=== PATIENT | female | born 1965 | race Caucasian/White ===

== ENCOUNTER → 2018-09-24 07:03 | Outpatient (CLI) | payer OTHER, SELFPAY ==
--- NOTE | 2018-09-24 07:11 | CT_ITS ---
CT angio neck CTA processing with 3-D volume rendering images with shading performed on radiologist workstation Ordering Physician: Gregorio Merlos MD Patient Age: 52 years: Female HISTORY: ITS.REASON: CTA of the carotids TECHNIQUE: Bolus administration of 100 cc of Optiray 350 followed x 40 mL normal saline. Thin section helical scanning performed beginning at the aortic arch continuing through the neck & head. From these CTA processing performed by the radiologist on the radiologist workstation CTA processing with 3-D volume rendering images with shading performed on independent radiologist workstation following the routine. Axial sagittal and coronal reconstructions at CT workstation. All CT scans at this facility used one or more dose reduction techniques , viz: automatic exposure control, ma/Kv adjustment per patient's size, (including targeted exam where dose matched to the indication; i.e. head); or iterative reconstruction technique COMPARISON :None] available FINDINGS the aneurysm of Right ICA stenosis: Smooth stenosis at the proximal right internal carotid artery, just distal to its origin. Lumen measures 2.6 mm at this stenosis. ICA Lumen just distal to the stenosis measuring 4.7 mm. Thus this reflects a 45% diameter stenosis (and 50-60% cross section stenosis on the workstation processing/review.). Right carotid bifurcation appears satisfactory no calcified plaque in either bifurcation. Left ICA and left carotid bifurcation satisfactory.. No stenosis. No remarkable plaque Both common carotid arteries appear satisfactory and can be followed to the arch although there is some streak artifact due to the dense contrast at the left subclavian. Overall Satisfactory and widely patent appearance at the origin of great vessels from the arch. Both vertebral arteries appear patent WNL. 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 It measures up to 4.7 mm AP versus the more proximal basilar artery 2.5 mm diameter. I would consider this ectasia with a modest size but will benefit from follow-up. Suggest CTA in 9 months to again evaluate.. This is a particular concern if patient develops headaches.- Consider neurosurgical consult. . middle cerebral arteries images appear satisfactory. ... Very small right A1 segment with larger dominant Left A1 segment ... Small Patent posterior communicating arteries bilaterally which leads to the posterior cerebral arteries. The visualized paranasal sinuses clear Mastoid air cells unremarkable. ------IMPRESSION 1. Right ICA stenosis. 45% diameter stenosis proximal right ICA . Right ICA lumen lumen measures 2.6 mm diameter at its most narrow point 2. Left ICA unremarkable. Both common carotids unremarkable. Both carotid bifurcations unremarkable. 3. 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 Suggest follow-up follow-up CTA 6-9 months. Possibly consultation particularly significant headache. ..... Enlarged Right Lobe Thyroid with. Prominent nodule right lobe2.2 cm . Requires ultrasound follow-up
--- NOTE | 2018-09-24 07:11 | NM_ITS ---
CARDIOLITE SPECT MYOCARDIAL PERFUSION LEXISCAN, REST AND STRESS: [facility] REVIEW QGS EF AND WALL MOTION EVALUATION: QPS - PERFUSION EVALUATION HISTORY: C.P., SOB DOSE: 10.47 mCi technetium 99m mibi intravenously at rest followed by 31.6 mCi technetium 99m mibi following the intravenous ministration of 0.4 mg of Lexiscan. Resting blood pressure is 151/74. Stress blood pressure 133/61. FINDINGS: Ejection fraction is calculated to be 54. Stress images reveal decreased activity in the anterior wall while rest images reveal no significant change. Gated images ejection fraction 54% with normal wall motion IMPRESSION: Clinical correlation is advised. There is a large anterior defect with rest and stress accompanied by normal ejection fraction. This test suggests breast attenuation however clinical correlation is necessary
== END ==
PROVIDERS: PCP Family Medicine; Visit Provider Internal Medicine
DX: R07.89 Other chest pain (principal); R06.09 Other forms of dyspnea; I65.23 Occlusion and stenosis of bilateral carotid arteries; I10 Essential (primary) hypertension; F17.200 Nicotine dependence, unspecified, uncomplicated
CPT/HCPCS: 70498; 78452; 93017; A9502; J2785; Q9967

== ENCOUNTER → 2018-10-10 09:46 | Outpatient (CLI) | payer OTHER, SELFPAY ==
--- NOTE | 2018-10-10 09:49 | US_ITS ---
US thyroid HISTORY: Follow-up thyroid nodule ITS.REASON: THYROID NODULE ORDERING PHYSICIAN: Carlos Enrique Stewart PATIENT AGE: 52 years Comparison: 09/24/2018 FINDINGS: The right lobe is 4.4 x 1.9 x 2.3 cm. There is a 2.2 x 1.4 cm spongiform-appearing Nodule within the mid polar region of the right lobe of the thyroid gland corresponding to the CT abnormality. This is well-circumscribed. In addition, there is a 10 x 6 mm isoechoic nodule with central cystic area in the lower pole. The left lobe is 4.5 x 1.4 x 1.6 cm and contains at least 3 small cysts. IMPRESSION: 1. Dominant mixed echogenic nodule of the mid polar region of the right lobe of the thyroid gland 2.2 x 1.4 cm. Fine-needle aspiration could be performed with sonographic guidance of clinically desired 2. Mildly enlarged thyroid gland bilaterally
== END ==
PROVIDERS: PCP Family Medicine; Visit Provider Family Medicine
DX: E04.1 Nontoxic single thyroid nodule (principal)
CPT/HCPCS: 76536

== ENCOUNTER → 2018-11-05 12:23 | Outpatient (CLI) | payer OTHER, SELFPAY ==
[2018-11-05 13:26] LABS: Calcium 8.3 mg/dL (8.5-10.1); Free T4 (Free Thyroxine) 0.84 ng/dl (0.76-1.46); Thyroid Stimulating Hormone 1.44 uIU/ml (0.358-3.740)
[2018-11-06 08:18] LABS: Thyroid Peroxidase Antibodies 10 IU/mL (0-34)
[2018-11-07 07:01] LABS: Thyroglobulin Level <1.0 IU/mL (0.0-0.9)
== END ==
PROVIDERS: Visit Provider Otolaryngology
DX: E04.1 Nontoxic single thyroid nodule (principal)
CPT/HCPCS: 36415; 82308; 82310; 84439; 84443; 86376; 86800

== ENCOUNTER → 2018-11-07 08:42 | Outpatient (CLI) | payer OTHER, SELFPAY ==
--- NOTE | 2018-11-07 08:51 | FL_ITS ---
EXAM: Barium swallow/esophagram. INDICATION: ITS.REASON: DIFFICULTY SWALLOWING,INVOLUNTARY GASP FOR AIR ORDERING PHYSICIAN: Delvis Rollins MD PATIENT AGE: 52 years COMPARISON: None TECHNIQUE: In the upright position the patient was observed to swallow barium in both the AP and lateral view. The cervical esophagus was examined under fluoroscopy with images obtained. The patient was then placed prone in the right anterior oblique position and was observed to swallow barium with Valsalva technique . FLUOROSCOPY TIME: 54 seconds FINDINGS: There was no evidence of aspiration. There was normal peristalsis. No filling defects or mucosal abnormalities. No masses or strictures. The esophagus is midline without evidence of deviation. No external compression apparent. No hiatal hernia or reflux IMPRESSION: Negative barium swallow.
--- NOTE | 2018-11-07 08:53 | US_ITS ---
US FNA Thyroid HISTORY: ITS.REASON: RT THYROID NODULE ORDERING PHYSICIAN: Delvis Rollins MD PATIENT AGE: 52 years COMPARISON: None TECHNIQUE: Following obtaining informed consent, and the appropriate timeout procedure, using aseptic technique and local anesthesia with buffered lidocaine, fine-needle aspiration was performed of the nodule of interest in the mid polar region on the right. Using sonographic guidance. 3 passes were made into the nodule with a 25-gauge needle. Specimen was given to cytology. The patient tolerated the procedure well without evidence of immediate complications and left the ultrasound suite in stable condition. CYTOLOGY:Negative for malignant cells IMPRESSION: Uneventful ultrasound-guided fine-needle aspiration of the right lobe of the thyroid gland showing benign findings.
== END ==
PROVIDERS: PCP Family Medicine; Visit Provider Otolaryngology
DX: E04.1 Nontoxic single thyroid nodule (principal)
CPT/HCPCS: 10005; 74220; 76942

== ENCOUNTER → 2019-04-24 15:26 | Outpatient (CLI) | payer OTHER, SELFPAY ==
[2019-04-24 16:38] LABS: Blood Urea Nitrogen 13 mg/dL (7-18); Creatinine,Serum 0.87 mg/dL (0.55-1.02); Estimated Glomerular Filt Rate 68 ml/min (>60); GFR (African American) 82 ML/MIN (>60)
== END ==
PROVIDERS: Visit Provider Internal Medicine
DX: I10 Essential (primary) hypertension (principal); I65.29 Occlusion and stenosis of unspecified carotid artery; R07.9 Chest pain, unspecified
CPT/HCPCS: 36415; 82565; 84520

== ENCOUNTER → 2019-05-09 09:27 | Outpatient (CLI) | payer OTHER, SELFPAY ==
--- NOTE | 2019-05-09 09:28 | CT_ITS ---
Procedure: CT ANGIO NECK CLINICAL HISTORY: 6 month follow up ,ectasia Carotid stenosis, ectasia of the basilar artery COMPARISON: [facility] CT angio neck from 09/24/2018 TECHNIQUE: IV Contrast: 100ml Optiray 350 Axial images obtained with sagittal and coronal reformats. All CT scans at the facility use one or more dose reduction, viz: automated exposure control, ma/kV adjustment per patient size (including targeted exams where dose is matched to indication, i.e. head), or iterative reconstruction technique. FINDINGS: Unremarkable aortic arch and great vessels. No change in the 45 percent stenosis the ostium of the right ICA The mid distal aspect of the right ICA has an unremarkable appearance. No significant stenosis left ICA. Unremarkable vertebral arteries. CT angiography also performed the head. There remains ectasia the basilar tip which is not significantly changed. No other intracranial vascular abnormalities apparent. 33 Nonvascular findings: Prominent interstitium in the lung apices. Small a right paratracheal lymph node is present at 1.6 x 0.8 cm and appears stable. There has been an interval right thyroidectomy. 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
[2019-05-09 10:09] LABS: Blood Urea Nitrogen 14 mg/dL (7-18); Creatinine,Serum 0.86 mg/dL (0.55-1.02); Estimated Glomerular Filt Rate 69 ml/min (>60); GFR (African American) 83 ML/MIN (>60)
--- NOTE | 2019-05-09 11:03 | HMH.ITSHM ---
Current Home Medications as stated by this patient Adrienne Khanna or branch service representative. []ALBUTEROL ASA ATORVASTATIN FLUOXETINE ISOSORBIDE LEVOTHYROXINE LISINOPRIL METOPROLOL NITRO OMEPRAZOLE
== END ==
PROVIDERS: PCP Family Medicine; Visit Provider Physician Assistant
DX: I65.21 Occlusion and stenosis of right carotid artery (principal)
CPT/HCPCS: 36415; 70498; 82565; 84520; Q9967

== ENCOUNTER → 2019-10-13 12:55 | Outpatient (CLI) | payer OTHER, SELFPAY ==
--- NOTE | 2019-10-13 13:10 | US_ITS ---
PROCEDURE: US KIDNEY CLINICAL INDICATION: I10 Essential (primary) hypertension COMPARISON: No exams were available for comparison FINDINGS: The right kidney is [id number]. No hydronephrosis, cortical thinning, or renal mass or perinephric fluid collection is evident. The left kidney is [id number]. No hydronephrosis, cortical thinning, or renal mass or perinephric fluid collection is evident. IMPRESSION: Unremarkable bilateral renal ultrasound Dictated by: John Encarnacion MD 10/13/2019 15:38 Electronically signed by John Encarnacion MD in [place] 10/13/2019 15:38
[2019-10-13 13:14] LABS: Basophils # 0.3 K/mm3 (0-0.2); Eosinophils # 0.7 K/mm3 (0.0-0.4); Eosinophils % 5.1 % (0.1-12.0); Hematocrit 44.6 % (37.0-47.0); Hemoglobin 14.9 g/dL (12.2-16.2); Lymphocytes # 3.4 K/mm3 (0.7-4.5); Lymphocytes % 25.5 % (10-50); Mean Corpuscular HGB Conc 33.4 g/dL (31.8-35.4); Mean Corpuscular Hemoglobin 30.9 pg (27.0-31.2); Mean Corpuscular Volume 92.5 fl (81-99); Mean Platelet Volume 8.4 fl (7.4-10.4); Monocytes # 0.5 K/mm3 (0.1-1.0); Monocytes % 4.1 % (1.7-9.3); Neutrophils # 8.4 K/mm3 (1.8-7.8); Neutrophils % 63.4 % (37.0-80.0); Platelet Count 338 K/mm3 (142-424); Red Blood Count 4.82 M/mm3 (4.20-5.40); Red Cell Distribution Width 14.3 % (11.5-17.5); White Blood Count 13.3 K/mm3 (4.8-10.8)
[2019-10-13 13:38] LABS: Troponin I < 0.01 ng/ml (0.00-0.034)
[2019-10-13 14:30] LABS: Alanine Aminotransferase 22 U/L (12-78); Albumin Level 4.3 g/dl (3.5-5.0); Alkaline Phosphatase 90 U/L (38-126); Anion Gap 8.4 mEq/L (5-15); Aspartate Amino Transferase 29 U/L (14-36); Bilirubin,Indirect 0.4 mg/dL (0.0-0.9); Bilirubin,Total 0.4 mg/dl (0.2-1.3); Bilirubin,Unconjugated 0.4 mg/dL (0.0-1.1); Blood Urea Nitrogen 13 mg/dl (7-17); Calcium 9.4 mg/dl (8.4-10.2); Carbon Dioxide 29 mmol/L (22.0-30.0); Chloride 108 mmol/L (98-107); Chol/HDL Ratio 4.7 (1-3.5); Cholesterol 160 mg/dl (140-200); Estimated Glomerular Filt Rate 65 ml/min (>60); GFR (African American) 79 ML/MIN (>60); Glucose 92 mg/dl (74-100); HDL Cholesterol 34 mg/dl (40-60); Potassium 4.4 mmoL/L (3.5-5.1); Sodium 141 mmol/L (136-145); Total Protein,Serum 6.6 g/dl (6.3-8.2); Triglycerides 387 mg/dl (30-150); VLDL Cholesterol 77 mg/dL (0-40)
[2019-10-13 14:41] LABS: Direct LDL Cholesterol 88.79 mg/dL (100-129)
[2019-10-13 15:03] LABS: Thyroid Stimulating Hormone 1.73 uIU/mL (0.465-4.68)
== END ==
PROVIDERS: Visit Provider Nurse Practitioner Family
DX: E78.2 Mixed hyperlipidemia (principal); I10 Essential (primary) hypertension; I20.9 Angina pectoris, unspecified
CPT/HCPCS: 36415; 76770; 80048; 80061; 80076; 84443; 84484; 85025

== ENCOUNTER → 2019-10-15 07:17 | Outpatient (CLI) | payer OTHER, SELFPAY ==
--- NOTE | 2019-10-15 07:18 | CA_ITS ---
APPROVED REPORT Sewing Pattern Layout Technician: Mandi Broussard RVT Study Quality: Good Indications: high blood pressure Risk Factors Hypertension Smoking Renal Artery Doppler Origin (R) 178.6/ cm/sec Proximal (R) 190.3/ cm/sec Mid (R) 250.5/ cm/sec Distal (R) 183.7/ cm/sec Renal Aorta Ratio (R) 2.42 Segmental A. (R) 34.7/14.2 cm/sec RI: 0.59 Segmental A. Sup (R) 26.2/7.1 cm/sec Segmental A. Mid (R) 22.0/11.3 cm/sec Segmental A. Inf (R) 34.7/14.2 cm/sec Origin (L) 191.0/ cm/sec Proximal (L) 201.2/ cm/sec Mid (L) 128.9/ cm/sec Distal (L) 85.8/ cm/sec Renal Aorta Ratio (L) 1.94 Segmental A. (L) 72.6/14.1 cm/sec RI: 0.80 Segmental A. Sup (L) 60.7/19.8 cm/sec Segmental A. Mid (L) 72.6/14.1 cm/sec Segmental A. Inf (L) 36.3/13.1 cm/sec Conclusion Study suggests less than 60% stenosis of the right renal artery. Study suggests less than 60% stenosis of the left renal artery. Electronically signed by : John Encarnacion MD 10/15/2019 16:38:52
== END ==
PROVIDERS: PCP Family Medicine; Visit Provider Nurse Practitioner Family
DX: I10 Essential (primary) hypertension (principal)
CPT/HCPCS: 93976

== ENCOUNTER 2019-10-26 22:56 | Observation (INO) | payer OTHER, SELFPAY ==
[2019-10-26 23:15] VITALS: BP 156/94; PULSE 63; RESP 17; TEMP 36.7; O2SAT 93
--- NOTE | 2019-10-26 23:19 | PC.NURSE ---
pt arrived to the floor at 2300 via stretcher, with Panda from ED and [facility] ambulance
[2019-10-26 23:29] VITALS: PULSE 60
--- NOTE | 2019-10-26 23:33 | ECG_ITS ---
APPROVED REPORT Exam: Resting ECG HR:63 bpm ECG Measurements Heart Rate 63 AXES DC 144 P 46 QRSd 84 QRS 46 QT 436 T 55 QTc 446 <Conclusion> Normal sinus rhythm with sinus arrhythmia Possible Left atrial enlargement Borderline ECG Electronically signed by : Ghulam Cummings, 10/27/2019 20:57:21
--- NOTE | 2019-10-26 23:37 | HMH.HP ---
*Admission Date: 10/26/19 *Chief complaint: chest pain *History of present illness: this pt presented to [facility] ed with chest pain - pt with hx of htn, cad-pt with recent abn renal duplex - pt was seen at another ed and has ongoing angina and was discussed with card and admitted for unstable angina [facility] History I have reviewed the patient's past medical history: Yes Medical History: Reports:: Aneurysm, Anxiety, Carotid Stenosis, Coronary Artery Disease, Depression, Gastroesophageal Reflux Disease(GERD), Hiatal Hernia, Hyperlipidemia, Hypertension *Have you ever received a pneumonia vaccine?: No *Have you received a flu vaccine this season?: No Other Surgeries: Yes: Cardiac Catheterization, Cholecystectomy, Hysterectomy-Total - *Social History Smoking Status: Current every day smoker #Yrs smoked (if former smoker): 42 Alcohol Intake: current Alcohol Intake Frequency:: holidays/special occasions only Substance Use Type: denies use *Occupational Status:: employed *Travel in the last 8 weeks: None - Psychiatric History Pschychiatric History:: Reports:: Anxiety, Depression Family Hx:: Coronary Artery Disease, Heart Attack Review of Systems - Review of Systems Review of systems:: pertinent systems reviewed and negative unless documented below - Constitutional Denies fever(s) - Eyes Denies change in vision - ENT Denies sore throat - *Cardiovascular Reports chest pain at rest, Reports radiating jaw, neck or arm pain - *Respiratory Denies cough - *Gastrointestinal Denies abdominal pain - *Genitourinary Denies blood in urine - *Musculoskeletal Denies joint pain - Integumentary/Breasts Denies rash - *Neurologic Denies headache(s), Denies seizure-like activity - Psychiatric Denies anxiety Meds Home Medications Medication Instructions Recorded Confirmed Type albuterol sulfate 90 mcg/actuation 1 inh INHALATION Q4-6H PRN 09/10/18 10/26/19 History breath activated powder inhaler atorvastatin 80 mg tablet 80 mg PO QHS 09/10/18 10/26/19 History fluoxetine 20 mg capsule 20 mg PO DAILY 09/10/18 10/26/19 History nitroglycerin 0.4 mg sublingual 0.4 mg SUBLINGUAL Q5-15M PRN 09/10/18 10/26/19 History tablet omeprazole 40 mg capsule,delayed 40 mg PO DAILY 09/10/18 10/26/19 History release levothyroxine 100 mcg capsule 100 mcg PO DAILY 04/21/19 10/26/19 History aspirin 81 mg tablet,delayed 81 mg PO DAILY 10/13/19 10/26/19 History release losartan 100 mg tablet 50 mg PO BID 10/13/19 10/26/19 History metoprolol tartrate 100 mg tablet 100 mg PO BID tab 10/13/19 10/26/19 History Isosorbide Mononitrate [Imdur 30mg 30 mg PO DAILY 10/26/19 10/26/19 History ER tablet] hydroCHLOROthiazide 12.5 mg PO DAILY 10/26/19 10/26/19 History [Hydrochlorothiazide 12.5mg Tab] Allergies Allergy/AdvReac Type Severity Reaction Status Date / Time niacin Allergy Mild Verified 10/20/19 09:51 Exam - Constitutional no acute distress, obese - *Routine HEENT Exam Head: Present: normocephalic Eye: Present: EOMI, PERRL ENT: Present: mucous membranes dry - *Routine Neck Exam Present: supple. Absent: JVD - *Routine Respiratory Exam Present: CTA bilaterally - *Routine Cardiovascular Exam Present: RRR, murmur - *Routine Abdominal Exam Present: soft - *Routine Extremities Exam Absent: calf tenderness - *Routine Skin Exam Present: intact - *Routine Neurological Exam Present: alert, oriented X3, CN II-XII intact - Routine Psychiatric Exam Present: normal affect Assessment and Plan (1) Unstable angina Current visit: Yes Status: Acute Category: Medical Code(s): I20.0 - Unstable angina (2) HTN (hypertension) Current visit: No Status: Chronic Qualifiers: Hypertension type: essential hypertension Qualified Code(s): I10 - Essential (primary) hypertension Category: Medical Code(s): I10 - Essential (primary) hypertension (3) Obesity (BMI 30.0-34.9) Current visit: Moy
[2019-10-26 23:42] VITALS: BMI 31.5
[2019-10-27] VITALS (11 sets, daily range): BP systolic 136–172; BP diastolic 68–82; PULSE 56–80; RESP 18–22; TEMP 36.8; O2SAT 94–99; BMI 31.6
--- NOTE | 2019-10-27 | IR_ITS ---
APPROVED REPORT Patient Location: Inpatient Well Head Pumper: MIKE Morris RT (R) PROCEDURES Left heart catheterization Left ventriculogram Selective coronary angiogram Bilateral selective renal angiogram INDICATION Acute coronary syndrome/unstable angina, Malignant hypertension, Renovascular hypertension, Suspect renal artery stenosis Informed consent was obtained prior to the procedure. COMPLICATIONS NONE Estimated Blood Loss: LESS THAN 10 MLS TECHNIQUE One percent lidocaine was used to anesthetize the right groin. The right femoral artery was accessed via the Seldinger technique. A 4-Kazakh sheath was placed in the right femoral artery. The JL-4 and JR-4 catheter was also used to perform left heart catheterization left ventriculogram and selective coronary angiogram. At the end of the procedure the patient was transferred to the post-op holding area in stable condition for arterial sheath removal. The JR4 catheter was used to selectively intubate each renal artery and perform selective angiography ANGIOGRAPHIC RESULTS The left main artery Normal The left anterior descending artery Has proximal concentric 20 to 30% stenosis. The remaining vessel has mild 10% luminal irregularities. The caliber of the vessel was small but widely patent The circumflex artery Nondominant with mild 10% luminal irregularities The right coronary artery Is a dominant vessel small in caliber and has proximal and mid vessel 20% concentric stenosis The GALVEZ ventriculogram reveals Hyperdynamic at 75% The left ventricular end-diastolic pressure Severely elevated at 30 mmHg The left renal artery singular and is normal The right renal artery is singular and has an ostial proximal eccentric 20% [id number] stenosis IMPRESSION Mild upk-[id number]-twngydvt coronary artery disease Small caliber vessels consistent with hypertensive vasculopathy Hyperdynamic ventricle consistent with hypertensive heart disease Elevated LVEDP consistent with hypertensive heart disease/diastolic dysfunction PLAN 1. Continue aggressive therapy for CAD prevention including an LDL less than 55 2. Patient would benefit from beta-blockers combined with diltiazem or verapamil 3. Treat diastolic dysfunction with loop diuretics 4. Avoidance of tobacco products Electronically signed by : Gregorio Merlos, 10/27/2019 12:13:12
[2019-10-27 04:06] LABS: Troponin I < 0.01 ng/ml (0.00-0.034)
--- NOTE | 2019-10-27 05:59 | PC.NURSE ---
Pt states that chest pain has improved. She rates it between a 2 and 3 now on [employer]CR[employer]ER scale. Pt is currently NPO for AM consult. SHe is currently in shower. VSS. No other concerns at this time. Will continue to monitor.
[2019-10-27 06:35] LABS: Basophils # 0.2 K/mm3 (0-0.2); Eosinophils # 0.7 K/mm3 (0.0-0.4); Hematocrit 40.9 % (37.0-47.0); Hemoglobin 14.2 g/dL (12.2-16.2); Lymphocytes # 3.4 K/mm3 (0.7-4.5); Lymphocytes % 24.4 % (10-50); Mean Corpuscular HGB Conc 34.7 g/dL (31.8-35.4); Mean Corpuscular Hemoglobin 31.4 pg (27.0-31.2); Mean Corpuscular Volume 90.5 fl (81-99); Mean Platelet Volume 7.8 fl (7.4-10.4); Monocytes # 0.6 K/mm3 (0.1-1.0); Monocytes % 4.5 % (1.7-9.3); Neutrophils # 9.2 K/mm3 (1.8-7.8); Platelet Count 261 K/mm3 (142-424); Red Blood Count 4.52 M/mm3 (4.20-5.40); Red Cell Distribution Width 14.2 % (11.5-17.5); White Blood Count 14.1 K/mm3 (4.8-10.8)
[2019-10-27 06:37] LABS: Chloride 108 mmol/L (98-107)
[2019-10-27 06:38] LABS: Potassium 3.6 mmoL/L (3.5-5.1); Sodium 142 mmol/L (136-145)
[2019-10-27 06:40] LABS: Blood Urea Nitrogen 18 mg/dl (7-17); Creatinine Clearance Estimated 96 mL/min (50-200); Estimated Glomerular Filt Rate 65 ml/min (>60); GFR (African American) 79 ML/MIN (>60)
[2019-10-27 06:41] LABS: Anion Gap 10.6 mEq/L (5-15); Calcium 8.9 mg/dl (8.4-10.2); Carbon Dioxide 27 mmol/L (22.0-30.0); Glucose 99 mg/dl (74-100)
[2019-10-27 06:42] LABS: INR 0.97 (0.9-1.1); Prothrombin Time 10.1 seconds (9.4-11.8)
--- NOTE | 2019-10-27 06:46 | PC.NURSE ---
New IV placed. #20 RFA.
[2019-10-27 06:59] LABS: Troponin I < 0.01 ng/ml (0.00-0.034)
--- NOTE | 2019-10-27 07:41 | P.CONPHA_ITS ---
[facility] Pharmacy VTE Monitoring - Patient Demographics Admission date: 10/27/19 Report Date: 10/27/19 Time: 07:41 Allergies/Adverse Reactions: Patient Allergies niacin Allergy (Mild, Verified 10/20/19 09:51) Height: 1.65 m Weight: 85.95 kg Patient Problems: Current Active Problems Unstable angina (Acute) Obesity (BMI 30.0-34.9) (Acute) Hypothyroidism (acquired) (Acute) - VTE Risk Labs: VTE Related Lab Results Hgb 14.2 g/dL (12.2-16.2) 10/27/19 06:25 Hct 40.9 % (37.0-47.0) 10/27/19 06:25 Plt Count 261 K/mm3 (142-424) 10/27/19 06:25 PT 10.1 seconds (9.4-11.8) 10/27/19 06:25 INR 0.97 (0.9-1.1) 10/27/19 06:25 BUN 18 mg/dl (7-17) H 10/27/19 06:25 Creatinine 0.90 mg/dl (0.52-1.04) 10/27/19 06:25 Estimated Creat Clear 96 mL/min (50-200) 10/27/19 06:25 Was VTE Risk Assessment Performed: Yes VTE Score: 5 VTE Risk Level: Low Risk Clinical Trial Participant: No - Prophylaxis VTE Prophylaxis Ordered?: Yes Types of VTE Prophylaxis: TEDS Knee High
--- NOTE | 2019-10-27 08:00 | CA_ITS ---
APPROVED REPORT EXAM: Comprehensive 2D, Doppler, and color-flow Echocardiogram Satellite Tv Installer: Iesha Pacheco RT(R) Ht: 5 ft 5 in Wt: 189lbs BSA: 1.93 BP: 161/70 mmHg Indications: Smoking, HTN, Hyperlipidemia, Aneurysm, ALONDRA, CAD, Gerd 2D Dimensions LVOT 1.86 cm (M/F) 1.5-2.5 M-Mode Dimensions RVDd 1.68 cm (0.9-2.6) LVDd 5.04 cm (3.5-5.7) LVDs 3.94 cm (3.5-5.7) IVSd 0.93 cm (0.6-1.1) PWd 0.89 cm (0.6-1.1) EF (Teich) 44.00% FS 21.80% EDV (Teich) 120.50 mL ESV (Teich) 67.50 mL LV Diastology E/A Ratio 0.74 Mitral Valve MV A Velocity 126.00 (40-130 cm/s) Left Ventricle Left atrium is mildly enlarged, left ventricle is normal size, mild concentric left ventricular hypertrophy, visually estimated ejection fraction 50%, there appears to be mild hypokinesis involving the inferior basal wall, Definity contrast was utilized to delineate the endocardial surfaces, there is no left ventricular thrombus seen. Grade 1 diastolic dysfunction seen without tissue Doppler evidence of raise left atrial pressure. Right Ventricle Right atrium and right ventricle are normal size and contractility. Aortic Valve Aortic valve is minimally thickened and fibrosed, there is no aortic stenosis or aortic insufficiency. Mitral Valve Mitral valve leaflets are minimally thickened, there is mild mitral regurgitation. Tricuspid Valve Tricuspid valve is grossly normal, there is mild tricuspid regurgitation, tricuspid regurgitation jet velocity is inadequate for calculation of the right ventricular systolic pressure. Pulmonic Valve Pulmonic valve is poorly visualized. Great Vessels Aortic root is normal size. Pericardium No significant pericardial effusion noted. Conclusion 1. Mildly enlarged left atrium, normal left ventricular size, mild concentric left ventricular hypertrophy, visually estimated ejection fraction 50% with segmental wall motion abnormality described above, grade 1 diastolic dysfunction seen without tissue Doppler evidence of raise left atrial pressure, Definity contrast visualized to delineate the endocardial surfaces. 2. Mild mitral and tricuspid regurgitation. 3. No significant pericardial effusion noted. Electronically signed by : Leonel Sorenson, 10/27/2019 20:02:18
--- NOTE | 2019-10-27 08:19 | HMH.ACPN2 ---
Internal Medicine - PN: Subj *Date: 10/27/19 *Time: 08:19 Interval history: pt states still having chest pain, pt states smokes 1 1/2 pack per day. Exam Vital signs and Labs for Last 24 Hours: Temp Pulse Resp BP Pulse Ox 98.2 F 56 L 18 141/78 H 99 10/27/19 08:00 10/27/19 08:00 10/27/19 08:00 10/27/19 08:00 10/27/19 08:00 Laboratory Results - last 24 hr 10/27/19 03:30: Troponin I < 0.01 10/27/19 06:25: WBC 14.1 H, RBC 4.52, Hgb 14.2, Hct 40.9, MCV 90.5, MCH 31.4 H, MCHC 34.7, RDW 14.2, Plt Count 261, MPV 7.8, Neut % (Auto) 65.0, Lymph % (Auto) 24.4, [place] % (Auto) 4.5, Eos % (Auto) 5.0, Baso % (Auto) 1.0, Neut # (Auto) 9.2 H, Lymph # (Auto) 3.4, [place] # (Auto) 0.6, Eos # (Auto) 0.7 H, Baso # (Auto) 0.2 10/27/19 06:25: PT 10.1, INR 0.97 10/27/19 06:25: Sodium 142, Potassium 3.6, Chloride 108 H, Carbon Dioxide 27, Anion Gap 10.6, BUN 18 H, Creatinine 0.90, Estimated Creat Clear 96, Estimated GFR 65, Est GFR ( Amer) 79, Glucose 99, Calcium 8.9, Magnesium 2.0, Troponin I < 0.01 I & O for Last 24 hours: Intake & Output 10/24/19 10/25/19 10/26/19 10/27/19 11:59 11:59 11:59 11:59 Intake Total 0 / 0 Balance 0 / 0 Weight 189 lb 7.797 oz - Constitutional no acute distress, obese - *Routine HEENT Exam Head: Present: normocephalic Eye: Present: PERRL ENT: Present: mucous membranes moist - *Routine Neck Exam Present: supple. Absent: lymphadenopathy - *Routine Respiratory Exam Present: CTA bilaterally - *Routine Cardiovascular Exam Present: RRR, murmur - *Routine Abdominal Exam Present: soft, normoactive bowel sounds. Absent: tenderness - *Routine Extremities Exam Present: normal capillary refill. Absent: cyanosis, clubbing, edema - *Routine Skin Exam Present: warm. Absent: rash - *Routine Neurological Exam Present: alert, oriented X3 - Routine Psychiatric Exam Present: normal affect Assessment and Plan (1) Unstable angina Current visit: Yes Status: Acute Category: Medical Code(s): I20.0 - Unstable angina (2) HTN (hypertension) Current visit: No Status: Chronic Qualifiers: Hypertension type: essential hypertension Qualified Code(s): I10 - Essential (primary) hypertension Category: Medical Code(s): I10 - Essential (primary) hypertension (3) Obesity (BMI 30.0-34.9) Current visit: Yes Status: Acute Category: Medical Code(s): E66.9 - Obesity, unspecified (4) Hypothyroidism (acquired) Current visit: Yes Status: Acute Category: Medical Code(s): E03.9 - Hypothyroidism, unspecified (5) Tobacco dependence Current visit: Yes Status: Acute Category: Medical Code(s): F17.200 - Nicotine dependence, unspecified, uncomplicated - Assessment and plan all Dx Assessment and Plan for all problems:: rounded with dr anglin all orders per dr linnette salcido dc later today heart cath today
--- NOTE | 2019-10-27 08:39 | HMH.CNCARD ---
History of Present Illness Consult date: 10/27/19 Requesting physician: Carlos Enrique Barakat Consult reason: chest pain Chief complaint: Chest pain Additional Medical History:: 1. History of hypertension A. Renal duplex, 09/2019, unremarkable 2. History of chest pain A. Lexiscan Myoview, 09/2018, EF 54% with anterior ischemia and normal wall motion. Suggesting breast attenuation. B. Medical therapy recommended due to patient remaining asymptomatic 3. Tobacco use of 1 to 1.5 packs/day for 40+ years 4. Family history of heart disease in both parents in their mid to late 60s 5. Hypothyroidism, on replacement therapy 6. GERD with history of hiatal hernia 7. Hyperlipidemia 8. Anxiety 9. History of aneurysm per chart History of present illness: 53-year-old white female transferred from [facility] for evaluation of chest pain. Patient relates being at home resting when she developed sudden onset of viselike chest discomfort. Symptoms did radiate into the left shoulder and left upper arm. She did take 3 nitroglycerin at home without significant relief. Evaluation in [facility] ER initially but then patient was transferred to [facility] ER for evaluation due to sap director (Dr. Merlos) being here. Patient's troponins have returned normal overnight. EKG is sinus rhythm with no acute ST segment changes. Recent evaluation for malignant hypertension has included renal ultrasound and renal duplex both of which were unremarkable. Patient did check her blood pressure at home yesterday during the episode of chest pain and relates that it was not significantly elevated. [facility] History Medical History: Reports:: Aneurysm, Anxiety, Carotid Stenosis, Coronary Artery Disease, Depression, Gastroesophageal Reflux Disease(GERD), Hiatal Hernia, Hyperlipidemia, Hypertension Denies:: Cancer, Diabetes Mellitus Type 1, Diabetes Mellitus Type 2, MRSA *Have you ever received a pneumonia vaccine?: Yes *Have you received a flu vaccine this season?: No Other Medical History: Reports: Hypothyroidism, Thyroid Disease Other Surgeries: Yes: Cardiac Catheterization, Cholecystectomy, Colonoscopy, Hysterectomy-Total, Thyroidectomy (partial) Amputation: No - *Social History Educational Level: Attended College Smoking Status: Current every day smoker Tobacco Type: cigarettes # Packs/Day (cigarettes): 1 #Yrs smoked (if former smoker): 42 Alcohol Intake: current Alcohol Intake Frequency:: a few times a month Substance Use Type: denies use *Occupational Status:: other *Travel in the last 8 weeks: None - Psychiatric History Pschychiatric History:: Reports:: Anxiety, Depression Family Hx:: Asthma, Cancer, Diabetes, Heart Attack, Hyperlipidemia, Hypertension, Thyroid Disorder Meds Home Medications Medication Instructions Recorded Confirmed Type albuterol sulfate 90 mcg/actuation 1 inh INHALATION Q4-6H PRN 09/10/18 10/26/19 History breath activated powder inhaler atorvastatin 80 mg tablet 80 mg PO HS 09/10/18 10/27/19 History fluoxetine 20 mg capsule 20 mg PO DAILY 09/10/18 10/26/19 History nitroglycerin 0.4 mg sublingual 0.4 mg SUBLINGUAL Q5-15M PRN 09/10/18 10/26/19 History tablet omeprazole 40 mg capsule,delayed 40 mg PO DAILY 09/10/18 10/26/19 History release levothyroxine 100 mcg capsule 100 mcg PO DAILY 04/21/19 10/26/19 History aspirin 81 mg tablet,delayed 81 mg PO DAILY 10/13/19 10/26/19 History release metoprolol tartrate 100 mg tablet 100 mg PO BID tab 10/13/19 10/26/19 History Isosorbide Mononitrate [Imdur 30mg 30 mg PO DAILY 10/26/19 10/26/19 History ER tablet] hydroCHLOROthiazide 12.5 mg PO DAILY 10/26/19 10/26/19 History [Hydrochlorothiazide 12.5mg Tab] Losartan Potassium 50 mg PO BID 10/27/19 10/27/19 History Allergies Allergy/AdvReac Type Severity Reaction Status Date / Time niacin Allergy Mild Verified 10/20/19 09:51 Review of Systems - Review of Systems Review of systems:: sail[place]
--- NOTE | 2019-10-27 10:33 | PC.NURSE ---
pt requested nicotine patch. regino fernando gave order at 1020 for pt to have nicotine patch 21mg daily
--- NOTE | 2019-10-27 12:59 | PC.NURSE ---
report received from regino aguilar rn at [phone]
--- NOTE | 2019-10-27 13:58 | HMH.DCSUM ---
General - General Admission date:: 10/26/19 Discharge date: 10/27/19 HPI HPI: this pt presented to [facility] with chest pain - pt with hx of htn, cad-pt with recent abn renal duplex - pt was seen at another ed and has ongoing angina and was discussed with card and admitted for unstable angina Hospital Course Hospital Course: ANGIOGRAPHIC RESULTS: The left main artery Normal The left anterior descending artery Has proximal concentric 20 to 30% stenosis. The remaining vessel has mild 10% luminal irregularities. The caliber of the vessel was small but widely patent The circumflex artery Nondominant with mild 10% luminal irregularities The right coronary artery Is a dominant vessel small in caliber and has proximal and mid vessel 20% concentric stenosis The GALVEZ ventriculogram reveals Hyperdynamic at 75% The left ventricular end-diastolic pressure Severely elevated at 30 mmHg The left renal artery singular and is normal The right renal artery is singular and has an ostial proximal eccentric 20% [id number] stenosis IMPRESSION Mild ejr-azvb-srimlfwx coronary artery disease Small caliber vessels consistent with hypertensive vasculopathy Hyperdynamic ventricle consistent with hypertensive heart disease Elevated LVEDP consistent with hypertensive heart disease/diastolic dysfunction PLAN 1. Continue aggressive therapy for CAD prevention including an LDL less than 55 2. Patient would benefit from beta-blockers combined with diltiazem or verapamil 3. Treat diastolic dysfunction with loop diuretics 4. Avoidance of tobacco products Laboratory Tests 10/27/19 10/27/19 10/27/19 03:30 06:25 06:25 WBC 14.1 H RBC 4.52 Hgb 14.2 Hct 40.9 MCV 90.5 MCH 31.4 H MCHC 34.7 RDW 14.2 Plt Count 261 MPV 7.8 Neut % (Auto) 65.0 Lymph % (Auto) 24.4 [place] % (Auto) 4.5 Eos % (Auto) 5.0 Baso % (Auto) 1.0 Neut # (Auto) 9.2 H Lymph # (Auto) 3.4 [place] # (Auto) 0.6 Eos # (Auto) 0.7 H Baso # (Auto) 0.2 PT 10.1 INR 0.97 Sodium Potassium Chloride Carbon Dioxide Anion Gap BUN Creatinine Estimated Creat Clear Estimated GFR Est GFR ( Amer) Glucose Calcium Magnesium Troponin I < 0.01 10/27/19 06:25 WBC RBC Hgb Hct MCV MCH MCHC RDW Plt Count MPV Neut % (Auto) Lymph % (Auto) [place] % (Auto) Eos % (Auto) Baso % (Auto) Neut # (Auto) Lymph # (Auto) [place] # (Auto) Eos # (Auto) Baso # (Auto) PT INR Sodium 142 Potassium 3.6 Chloride 108 H Carbon Dioxide 27 Anion Gap 10.6 BUN 18 H Creatinine 0.90 Estimated Creat Clear 96 Estimated GFR 65 Est GFR ( Amer) 79 Glucose 99 Calcium 8.9 Magnesium 2.0 Troponin I < 0.01 Cardiac Enzymes 10/27/19 10/27/19 Range/Units 03:30 06:25 Troponin I < 0.01 < 0.01 (0.00-0.034) ng/ml Coagulation 10/27/19 Range/Units 06:25 PT 10.1 (9.4-11.8) seconds CBC 10/27/19 Range/Units 06:25 WBC 14.1 H (4.8-10.8) K/mm3 RBC 4.52 (4.20-5.40) M/mm3 Hgb 14.2 (12.2-16.2) g/dL Hct 40.9 (37.0-47.0) % Plt Count 261 (142-424) K/mm3 Neut # (Auto) 9.2 H (1.8-7.8) K/mm3 Lymph # (Auto) 3.4 (0.7-4.5) K/mm3 [place] # (Auto) 0.6 (0.1-1.0) K/mm3 Eos # (Auto) 0.7 H (0.0-0.4) K/mm3 Baso # (Auto) 0.2 (0-0.2) K/mm3 Comprehensive Metabolic Panel 10/27/19 Range/Units 06:25 Sodium 142 (136-145) mmol/L Potassium 3.6 (3.5-5.1) mmoL/L Chloride 108 H (98-107) mmol/L Carbon Dioxide 27 (22.0-30.0) mmol/L BUN 18 H (7-17) mg/dl Creatinine 0.90 (0.52-1.04) mg/dl Glucose 99 (74-100) mg/dl Calcium 8.9 (8.4-10.2) mg/dl Intake and Output 10/27/19 10/27/19 10/27/19 03:59 11:59 19:59 Intake Total 0 / 0 Balance 0 / 0 Intake: Intake, Oral Amount 0 / 0 Other: Weight 189 lb 8 oz 189 lb 7.797 oz will dc home and pt to follow up with pcp
--- NOTE | 2019-10-27 15:37 | PC.NURSE ---
per regino davila continue both metoprolol 100 bid and losartan 100 bid
--- NOTE | 2019-10-27 16:08 | HMH.PHAINT ---
DISCHARGE COUNSELING COMPLETED.
== END 2019-10-27 16:30 | disposition home or self-care (01) ==
PROVIDERS: Internal Medicine; Admitting Provider Emergency Medicine; PCP Emergency Medicine; Visit Provider Emergency Medicine
DX: I25.110 Atherosclerotic heart disease of native coronary artery with unstable angina pectoris (principal); I11.0 Hypertensive heart disease with heart failure; I50.30 Unspecified diastolic (congestive) heart failure; E03.9 Hypothyroidism, unspecified; Z82.49 Family history of ischemic heart disease and other diseases of the circulatory system; Z72.0 Tobacco use
CPT/HCPCS: 36252; 36415; 80048; 83735; 84484; 85025; 85610; 93005; 93306; 93458; 99152; C1725; C1769; G0378; J1644; Q9957; Q9967